=== PATIENT | female | born 1975 | race Caucasian/White ===

== ENCOUNTER 2016-12-13 15:19 | Emergency (ER) | payer BC ==
[~2016-12-13 15:19] MED LIST: BUSPAR 5MG TABLE5 MG PO; DILTIAZEM 24HR240 MG PO; FLEXERIL 10 MG10 MG PO; GLUCOPHAGE1000 MG PO; NEURONTIN 300300 MG PO; NORCO 10-325 T1 EACH PO; REMERON15 MG PO; SEROQUEL400 MG PO; TENORMIN 50 MG50 MG PO
== END 2016-12-13 17:15 | disposition home or self-care (01) ==
LOC: ER1 15:19
DX: G43.909 Migraine, unspecified, not intractable, without status migrainosus (principal); I10 Essential (primary) hypertension; E11.9 Type 2 diabetes mellitus without complications; F17.210 Nicotine dependence, cigarettes, uncomplicated; Z90.49 Acquired absence of other specified parts of digestive tract; Z88.0 Allergy status to penicillin; Z88.6 Allergy status to analgesic agent; Z79.891 Long term (current) use of opiate analgesic; Z79.899 Other long term (current) drug therapy
CPT/HCPCS: 96374; 96375; 99283; J1200; J1885; J2270; J2550; J2765; J7030

== ENCOUNTER 2017-01-29 03:56 | Emergency (ER) | payer BC | END 2017-01-29 08:40 | disposition home or self-care (01) | LOC: ER1 03:56 | DX: G43.909 Migraine, unspecified, not intractable, without status migrainosus (principal); I10 Essential (primary) hypertension; E11.9 Type 2 diabetes mellitus without complications; F17.210 Nicotine dependence, cigarettes, uncomplicated; Z88.0 Allergy status to penicillin; Z79.899 Other long term (current) drug therapy | CPT/HCPCS: 96374; 96375; 99283; J2270; J2550 ==